=== PATIENT | male | born 1985 | race Caucasian/White ===

== ENCOUNTER 2016-06-11 20:15 | Observation (INO) | payer OTHER ==
[~2016-06-11] VITALS: Ht 182.9 cm; Wt 100.0 kg
[~2016-06-11 20:15] MED LIST: AUGM875 PO; LORT5TAB PO; SULF1TAB47 PO; Z.0.NO CURRENT MEDS
[2016-06-11 20:18] VITALS: BP 166/79; PULSE 60; RESP 16; TEMP 98.2; O2SAT 100
--- NOTE | 2016-06-11 21:12 | PD ---
HPI Chief Complaint: GI Complaint Time Seen by Provider: 21:11 Travel History International Travel<30 days: No Contact w/Intl Traveler<30days: No Traveled to known affect area: No History of Present Illness HPI 31-year-old male presents to the ED for evaluation of episodic palpitations, diaphoresis and dizziness. Patient states first episode was 5 days ago. He states he woke in the middle of the night with watery diarrhea accompanied by abdominal pain, nausea, palpitations, diaphoresis, malaise. He states that these symptoms have resolved, with last episode of diarrhea yesterday. Endorses episode of palpitations and diaphoresis today after working in the yard. This lasted 1-2 minutes before resolving spontaneously. Patient is a daily wine drinker. Endorses 1 pack years history of smoking. Patient endorses taking multiple supplements daily. Also endorses daily caffeine intake. Endorses rare energy drinks. The patient states that he lifts weights 1.5 hours and plays racquetball 2-3 hours daily. Father of a NM in his early 50s. He had a stress test and carotid US ~5 years ago and was told that they were "normal" at the time. [facility] Past Surgical History Oral Surgery: Yes (molar) Social History Alcohol Use: Yes (daily 2-3 wine) Tobacco Use: No Substance Use: No Allergies-Medications (Allergen,Severity, Reaction): Coded Allergies: No Known Allergies (Verified , 06/11/16) Reported Meds & Prescriptions Reported Meds & Active Scripts Active No Active Prescriptions or Reported Medications Review of Systems Except as stated in HPI: all other systems reviewed are Neg Physical Exam Narrative GENERAL: Well-nourished, well-developed athletic build white male in no acute distress SKIN: Warm and dry. There is a 4 cm crusted abrasion on the left anterior gunn. No signs of infection. HEAD: Normocephalic. Atraumatic. EYES: No scleral icterus. No injection or drainage. PERRLA. EOMI. NECK: Supple, trachea midline. No JVD or lymphadenopathy. CARDIOVASCULAR: Regular rate and rhythm without murmurs, gallops, or rubs. No carotid bruits. 2+ DP and radial pulses bilaterally. RESPIRATORY: Breath sounds clear and equal bilaterally. No accessory muscle use. GASTROINTESTINAL: Abdomen soft, non-tender, nondistended. + Bowel sounds MUSCULOSKELETAL: No cyanosis, or edema. The patient is ambulatory and moves extremities spontaneously. BACK: Nontender without obvious deformity. No CVA tenderness. Data Data Last Documented VS Vital Signs Date Time Temp Pulse Resp B/P Pulse Ox O2 Delivery O2 Flow Rate FiO2 06/11/16 22:05 56 20 147/68 98 Room Air 06/11/16 20:18 98.2 Orders Electrocardiogram (06/11/16 ) Ckmb (Isoenzyme) Profile (06/11/16 21:25) Complete Blood Count With Diff (06/11/16 21:25) Comprehensive Metabolic Panel (06/11/16 21:25) Magnesium (Mg) (06/11/16 21:25) Prothrombin Time / Inr (Pt) (06/11/16:25) Act Partial Throm Time (Ptt) (06/11/16:25) Troponin I (06/11/16 21:25) Chest, Single Ap (06/11/16 21:25) Ecg Monitoring (06/11/16 21:25) Bilateral Bp Monitoring (06/11/16 21:25) Iv Access Insert/Monitor (06/11/16 21:25) Oximetry (06/11/16 21:25) Sodium Chloride 0.9% Flush (Ns Flush) (06/11/16 21:30) CKMB (06/11/16 21:55) CKMB% (06/11/16 21:55) Labs Laboratory Tests Test 06/11/16 21:55 White Blood Count 5.2 TH/MM3 Red Blood Count 4.63 MIL/MM3 Hemoglobin 14.4 GM/DL Hematocrit 41.0 % Mean Corpuscular Volume 88.6 FL Mean Corpuscular Hemoglobin 31.2 PG Mean Corpuscular Hemoglobin 35.1 % Concent Red Cell Distribution Width 12.8 % Platelet Count 199 TH/MM3 Mean Platelet Volume 7.9 FL Neutrophils (%) (Auto) 55.5 % Lymphocytes (%) (Auto) 34.9 % Monocytes (%) (Auto) 7.3 % Eosinophils (%) (Auto) 1.9 % Basophils (%) (Auto) 0.4 % Neutrophils # (Auto) 2.9 TH/MM3 Lymphocytes # (Auto) 1.8 TH/MM3 Monocytes # (Auto) 0.4 TH/MM3 Eosinophils # (Auto) 0.1 TH/MM3 Basophils # (Auto) 0.0 TH/MM3 CBC Comment DIFF FINAL Differential Comment Prothrombin Time 10.2 SEC Prothromb Time International 0.9 RATIO Ratio Activated Partial 27.9 SEC Thromboplast Time Sodium Level 139 MEQ/L Potassium Level 3.8 MEQ/L Chloride Level 101 MEQ/L Carbon Dioxide Level 29.8 MEQ/L Anion Gap 8 MEQ/L Blood Urea Nitrogen 14 MG/DL Creatinine 1.21 MG/DL Estimat Glomerular Filtration 69 ML/MIN Rate Random Glucose 83 MG/DL Calcium Level 9.1 MG/DL Magnesium Level 2.2 MG/DL Total Bilirubin 0.5 MG/DL Aspartate Amino Transf 42 U/L (AST/SGOT) Alanine Aminotransferase 37 U/L (ALT/SGPT) Alkaline Phosphatase 52 U/L Total Creatine Kinase 366 U/L Creatine Kinase MB 2.3 NG/ML Creatine Kinase MB % 0.6 % Troponin I LESS THAN 0.02 NG/ML Total Protein 7.8 GM/DL Albumin 4.2 GM/DL [facility] Medical Decision Making Medical Screen Exam Complete: Yes Emergency Medical Condition: Yes Differential Diagnosis Atypical chest pain versus electrolyte abnormality versus dehydration versus less likely ACS versus other Narrative Course 31-year-old male presents to the ED for evaluation of episodic palpitations, diaphoresis and dizziness. Patient states first episode was 5 days ago. He states he woke in the middle of the night with watery diarrhea accompanied by abdominal pain, nausea, palpitations, diaphoresis, malaise. He states that these symptoms have resolved, with last episode of diarrhea yesterday. Endorses episode of palpitations and diaphoresis today after working in the yard. This lasted 1-2 minutes before resolving spontaneously. Patient is a daily wine drinker. Endorses 1 pack years history of smoking. Patient endorses taking multiple supplements daily. Also endorses daily caffeine intake. Endorses rare energy drinks. The patient states that he lifts weights 1.5 hours and plays racquetball 2-3 hours daily. Father of a NM in his early 50s. He had a stress test and carotid US ~5 years ago and was told that they were "normal" at the time. Vitals reviewed. Physical exam reveals an athletic white male in no acute distress. Chest is clear to auscultation bilaterally. Abdomen soft, nontender. Equal pulses in the distal extremities. EKG: Rate 61, sinus rhythm. DC interval 161. QRS 129. QTc 428. Normal axis. Right bundle branch block. No ST elevations or depressions. Reviewed by Dr. Rose. CBC: Unremarkable CMP: unremarkable Cardiac enzymes: negative x 1 X-ray: Chest is clear per radiology read. Plan to admit this patient to the chest pain center for further evaluation of his atypical chest pain. Please see their notes for disposition. Diagnosis Primary Impression: Atypical chest pain Scripts No Active Prescriptions or Reported Meds Jerri Reynoso Jun 11, 2016 21:11
[2016-06-11] MEDS ORDERED: SODIUM CHLORIDE 0.9% FLUSH 10 ML FLUSH IVF PRN (21:30)
[2016-06-11 22:05] VITALS: BP 147/68; PULSE 56; RESP 20; O2SAT 98
--- NOTE | 2016-06-11 22:06 | RADRPT ---
EXAM DATE/TIME: 06/11/2016 21:57 [facility] COMPARISON: No previous studies available for comparison. INDICATIONS : Chest pain, shortness of breath, and syncopal episode. MEDICAL HISTORY : None. SURGICAL HISTORY : None. ENCOUNTER: Initial ACUITY: 1 week PAIN SCORE: 0/10 LOCATION: chest FINDINGS: A single view of the chest demonstrates the lungs to be symmetrically aerated without evidence of mas s, infiltrate or effusion. The cardiomediastinal contours are unremarkable. Osseous structures are intact. CONCLUSION: The lungs are clear. Sabino Hardwick MD on June 11, 2016 at 22:04 Board Certified Radiologist. This report was verified electronically.
[2016-06-11 22:27] LABS: AUTOMATED NEUTROPHIL # 2.9 TH/MM3 (1.8-7.7); BASOPHIL % 0.4 % (0.0-2.0); EOSINOPHIL # 0.1 TH/MM3 (0-0.4); EOSINOPHIL % 1.9 % (0.0-4.0); HEMO FLAGS DIFF FINAL; LYMPH % 34.9 % (9.0-44.0); LYMPHOCYTE # 1.8 TH/MM3 (1.0-4.8); MEAN CELL VOLUME 88.6 FL (80.0-100.0); MEAN CORPUSCULAR HEMOGLOBIN 31.2 PG (27.0-34.0); MEAN CORPUSCULAR HGB CONC 35.1 % (32.0-36.0); MONO % 7.3 % (0.0-8.0); NEUT % 55.5 % (16.0-70.0); PLATELET COUNT 199 TH/MM3 (150-450); RED BLOOD COUNT 4.63 MIL/MM3 (4.50-5.90); RED CELL DISTRIBUTION WIDTH 12.8 % (11.6-17.2); WHITE BLOOD COUNT 5.2 TH/MM3 (4.0-11.0)
[2016-06-11 22:32] LABS: APTT (PATIENT) 27.9 SEC (24.3-30.1); INTERNATIONAL NORMALIZED RATIO 0.9 RATIO; PROTHROMBIN TIME - PATIENT 10.2 SEC (9.8-11.6)
[2016-06-11 22:43] LABS: ANION GAP 8 MEQ/L (5-15); AST (GOT) 42 U/L (15-37); BICARBONATE 29.8 MEQ/L (21.0-32.0); BLOOD UREA NITROGEN 14 MG/DL (7-18); CHLORIDE 101 MEQ/L (98-107); GLOMERULAR FILTRATION RATE 69 ML/MIN (>89); MAGNESIUM 2.2 MG/DL (1.5-2.5); POTASSIUM 3.8 MEQ/L (3.5-5.1); SODIUM (NA) 139 MEQ/L (136-145)
[2016-06-11 22:49] LABS: ALKALINE PHOSPHATASE 52 U/L (45-117); ALT (GPT) 37 U/L (12-78); CREATINE KINASE 366 U/L (39-308); TOTAL BILIRUBIN ADULT 0.5 MG/DL (0.2-1.0)
[2016-06-11 23:01] LABS: CKMB 2.3 NG/ML (0.5-3.6)
[2016-06-11] MEDS ORDERED: SODIUM CHLORIDE 0.9% FLUSH 10 ML FLUSH IV FLUSH PRN (23:15)
[2016-06-11 23:19] VITALS: O2SAT 98
[2016-06-12 01:39] VITALS: PULSE 56; PULSE 58
[2016-06-12 02:30] LABS: CREATINE KINASE 289 U/L (39-308)
[2016-06-12 02:42] LABS: CKMB 2.4 NG/ML (0.5-3.6)
[2016-06-12 05:26] LABS: CREATINE KINASE 275 U/L (39-308)
[2016-06-12 05:38] LABS: CKMB 2.2 NG/ML (0.5-3.6)
[2016-06-12 08:00] VITALS: BP 133/63; PULSE 43; PULSE 50; RESP 20; TEMP 97.8; O2SAT 100
[2016-06-12] MEDS ORDERED: SODIUM CHLORIDE 0.9% FLUSH 10 ML FLUSH IV FLUSH SCH (09:00)
[2016-06-12] MEDS ORDERED: ONDANSETRON HCL 4 MG/2 ML VIAL IV PRN (10:45)
[2016-06-12] MEDS ORDERED: ACETAMINOPHEN 500 MG CPLT PO PRN (10:45)
[2016-06-12] MEDS ORDERED: NITROGLYCERIN 0.4 MG SL 25 TABS/BTL SL PRN (10:45)
--- NOTE | 2016-06-12 11:47 | HHI.HP ---
HPI Primary Care Physician No Primary Care Physician Chief Complaint Cardiac concern History of Present Illness 31-year-old male with no significant medical history presents to the emergency room for further evaluation of dizziness and "tingling all over." Denies any chest pain or pressure. Concerned about syncopal episodes as well. Monday night he had GI upset including nausea and diarrhea, states he became diaphoretic, and dizzy and had syncopal episode for a couple of seconds. and Monday felt much better. Monday [place] the day at the beach. Once home in the evening he drank half a glass a wine at that time he became dizzy and had tingling sensation all over his body. Tingling sensation happened after dizziness. No loss of consciousness. Breathing was labored slightly and he experienced nausea. No vomiting. Reports occasional palpitations although was not concurrent with dizziness. Father at age 50 with first cardiac stent and age 45. Proximally 5 years ago after father passing away had a complete cardiac workup including carotid ultrasounds and a stress test that were all unremarkable. He has been told he has a bundle branch block on his EKG. Review of Systems General: No fatigue,weakness, fever, chills, recent illness, or change in appetite. HEENT: No FORDE, no vision changes, no nasal congestion or drainage CV: As stated above. Has never experienced chest pain or pressure. Occasional palpitations. No intermittent leg pain. RESP: No SOB, cough, wheeze, or recent URI. GI: Nausea as stated above. Diarrhea has resolved. No vomiting. No abdominal discomfort. : No dysuria, urgency, frequency EXT: No lower leg edema, no paraesthesias MS: No discomfort or change in ROM NEURO: No change in memory, dizziness, difficulty with balance, LOC, motor/ sensory deficits PSYCH: No anxiety, depression SKIN: No rashes, no concerning lesions Past Family Social History Allergies: Coded Allergies: No Known Allergies (Verified , 06/11/16) Past Medical History None Past Surgical History None Reported Medications Reported Meds & Active Scripts Active No Active Prescriptions or Reported Medications Active Ordered Medications Current Medications Medications (Trade) Dose Ordered Sig/Pepito Route Start Time Stop Time Status Last Admin (Tylenol) 500 mg Q4H PRN PO 06/12/16 10:45 (Zofran Inj) 4 mg Q6H PRN IV 06/12/16 10:45 (Nitrostat Sl) 0.4 mg Q5M PRN SL 06/12/16 10:45 (Aspirin) 325 mg DAILY PO 06/13/16 09:00 Family History Father first heart attack with one cardiac stent placed at age 45, of massive heart attack at age 50. Social History No known diabetes, hyperlipidemia, or hypertension. Social EtOH. Denies any illegal drug use. Does not smoke. Activeplays racEndPlay 5 times weekly for 2-3 hours at a time. Past cardiac testing Actually 5 years ago stress test in bilateral carotid ultrasound unremarkable. Testing completed after father's unexpected . Has been told he has a bundle branch block in the past. Physical Exam Vital Signs Vital Signs Date Time Temp Pulse Resp B/P Pulse Ox O2 Delivery O2 Flow Rate FiO2 06/12/16 08:00 43 06/12/16 08:00 97.8 50 20 133/63 100 06/12/16 01:39 58 06/12/16 01:39 56 06/11/16 23:19 98 06/11/16 22:05 56 20 147/68 98 Room Air 06/11/16 20:18 98.2 60 16 166/79 100 Room Air Physical Exam GENERAL: Alert WN, WD, NAD, pleasant, male HEAD: NC, AT EYES: Sclera clear, conjunctiva without injection, pupils equal and round ENT: Mucous membranes pink and moist CV: RRR, without murmur, rub, gallop, no JVD, S1-S2 no S3-S4. No carotid bruits. RESP: Clear lungs throughout bilateral, no crackles, wheeze, rhonchi, symmetrical chest rise, nonlabored, able to speak in full sentences ABD: Soft, NT, ND, no masses, positive bowel tones BACK: No scoliosis EXT: Pulses +24, no dependent edema MS: Normal tone 4 extremities, nontender, no obvious deformities, full range of motion NEURO: CN II through CN XII grossly intact, motor strength 5/5, gait WNL PSYCH: A+O 3, pleasant affect, appropriate speech, appropriate mood and affect , insight and judgment SKIN: Normal turgor, normal texture, no lesions, no rashes, brisk cap refill, even hair distribution Laboratory Laboratory Tests Test 06/11/16 06/12/16 06/12/16 21:55 01:45 04:10 White Blood Count 5.2 Red Blood Count 4.63 Hemoglobin 14.4 Hematocrit 41.0 Mean Corpuscular Volume 88.6 Mean Corpuscular Hemoglobin 31.2 Mean Corpuscular Hemoglobin 35.1 Concent Red Cell Distribution Width 12.8 Platelet Count 199 Mean Platelet Volume 7.9 Neutrophils (%) (Auto) 55.5 Lymphocytes (%) (Auto) 34.9 Monocytes (%) (Auto) 7.3 Eosinophils (%) (Auto) 1.9 Basophils (%) (Auto) 0.4 Neutrophils # (Auto) 2.9 Lymphocytes # (Auto) 1.8 Monocytes # (Auto) 0.4 Eosinophils # (Auto) 0.1 Basophils # (Auto) 0.0 CBC Comment DIFF FINAL Differential Comment Prothrombin Time 10.2 Prothromb Time International 0.9 Ratio Activated Partial 27.9 Thromboplast Time Sodium Level 139 Potassium Level 3.8 Chloride Level 101 Carbon Dioxide Level 29.8 Anion Gap 8 Blood Urea Nitrogen 14 Creatinine 1.21 Estimat Glomerular Filtration 69 Rate Random Glucose 83 Calcium Level 9.1 Magnesium Level 2.2 Total Bilirubin 0.5 Aspartate Amino Transf 42 (AST/SGOT) Alanine Aminotransferase 37 (ALT/SGPT) Alkaline Phosphatase 52 Total Creatine Kinase 366 289 275 Creatine Kinase MB 2.3 2.4 2.2 Creatine Kinase MB % 0.6 Troponin I LESS THAN 0.02 LESS THAN 0.02 LESS THAN 0.02 Total Protein 7.8 Albumin 4.2 Result Diagram: 06/11/16215406/11/162154 Imaging Last Impressions Chest X-Ray 06/11/162124 Signed Impressions: Service Date/Time: Saturday, June 11, 2016 21:57 - CONCLUSION: The lungs are clear. Sabino Hardwick MD Course EKGs 3 EKG showed normal sinus bradycardic rhythm with a right bundle branch block. Assessment and Plan Assessment and Plan #1 Near syncopeadmitted to chest pain center. Ruled out with 3 sets of EKGs, cardiac enzymes, and monitored overnight. Patient has never had chest pain or pressure, more concern over near syncopal episode. Will be seen and evaluated by Dr. Angel Paul. Discussed the likelihood of a vasovagal response patient in length. Offered treadmill stress test to relieve some of his anxiety in regards to his family cardiac history. Encouraged to find a PCP and have basic lipid panel drawn. 12:00 Dr. Paul assisted patient. No further cardiac testing at this time. Educated in length vasovagal symptoms and causes. Viridiana Ness Jun 12, 2016 11:47
[2016-06-12 12:00] VITALS: BP 128/64; PULSE 50; RESP 20; TEMP 96.3; O2SAT 93
--- NOTE | 2016-06-12 13:16 | HHI.DCPOC ---
Discharge Care Plan Diagnosis: (1) Atypical chest pain Goals to Promote Your Health * To prevent worsening of your condition and complications * To maintain your health at the optimal level Directions to Meet Your Goals Take your medications as prescribed Follow your dietary instruction Follow activity as directed Keep your appointments as scheduled Take your immunizations and boosters as scheduled If your symptoms worsen call your PCP, if no PCP go to Urgent Care Center or Emergency Room Smoking is Dangerous to Your Health. Avoid second hand smoke Call the 24-hour hour crisis hotline for domestic abuse at Viridiana Ness Jun 12, 2016 13:16
--- NOTE | 2016-06-12 15:12 | EKG ---
Date Performed: 06/11/2016 Time Performed: 20:58:05 PTAGE: 31 years EKG: Sinus rhythm RIGHT BUNDLE BRANCH BLOCK ABNORMAL ECG NO PREVIOUS TRACING DOCTOR: Angel Paul Interpretating Date/Time 06/12/2016 15:11:43
--- NOTE | 2016-06-12 15:14 | EKG ---
Date Performed: 06/12/2016 Time Performed: 00:52:30 PTAGE: 31 years EKG: SINUS BRADYCARDIA RIGHT BUNDLE BRANCH BLOCK ABNORMAL ECG INTERPRETATION BASED ON A DEFAULT AGE OF 38 YEARS Since PREVIOUS TRACING , no significant change noted DOCTOR: Angel Paul Interpretating Date/Time 06/12/2016 15:13:09
--- NOTE | 2016-06-12 15:17 | EKG ---
Date Performed: 06/12/2016 Time Performed: 03:51:33 PTAGE: 31 years EKG: SINUS BRADYCARDIA RIGHT BUNDLE BRANCH BLOCK ABNORMAL ECG INTERPRETATION BASED ON A DEFAULT AGE OF 38 YEARS Since PREVIOUS TRACING , no significant change noted DOCTOR: Angel Paul Interpretating Date/Time 06/12/2016 15:15:18
[2016-06-13] MEDS ORDERED: ASPIRIN 325 MG TAB PO SCH (09:00)
== END 2016-06-12 15:13 | disposition home or self-care (01) ==
LOC: NEPC 20:15 → NEDA 23:02 → NEPFCDU 06-12 01:03
DX: R07.89 Other chest pain (principal); I45.10 Unspecified right bundle-branch block; R00.2 Palpitations; R61 Generalized hyperhidrosis; R42 Dizziness and giddiness; R19.7 Diarrhea, unspecified; R11.0 Nausea; R53.81 Other malaise; Z82.49 Family history of ischemic heart disease and other diseases of the circulatory system; Z87.891 Personal history of nicotine dependence
CPT/HCPCS: 71010; 80053; 82550; 82552; 83735; 84484; 85025; 85610; 85730; 93005; 99285; G0378